=== PATIENT | male | born 1970 | race Caucasian/White ===

== ENCOUNTER 2019-01-22 17:38 | Emergency (ER) | payer BC ==
[~2019-01-22] VITALS: Ht 193 cm; Wt 113.9 kg
[2019-01-22 17:46] VITALS: Ht 193 cm; Wt 113.9 kg
[2019-01-22 21:31] VITALS: BP 141/89
== END 2019-01-22 21:31 | disposition home or self-care (01) ==
LOC: ED 17:38
DX: S61.411A Laceration without foreign body of right hand, initial encounter (principal); W45.8XXA Other foreign body or object entering through skin, initial encounter; Y93.89 Activity, other specified; Y92.89 Other specified places as the place of occurrence of the external cause; Y99.8 Other external cause status
CPT/HCPCS: 90715; J2001